=== PATIENT | female | born 1955 | race Caucasian/White ===

== ENCOUNTER → 2020-10-01 | Outpatient (CLI) | payer BC ==
[~2020-10-01] MED LIST: CARVEDILOL3.125 MG PO; CLOPIDOGREL75 MG PO; COZAAR50 MG PO; FISH OIL 1,0001 EAC5 PO; GLUCOPHAGE500 MG PO; GLUCOPHAGE850 MG PO; HYDROCHLOROTHIA25 MG PO; LOW DOSE ASPIRI81 MG PO; NITROGLYCERIN0.4 MG SL
== END ==
LOC: HEART 5 14:50
DX: I21.9 Acute myocardial infarction, unspecified (principal); I08.3 Combined rheumatic disorders of mitral, aortic and tricuspid valves
CPT/HCPCS: 93306